=== PATIENT | male | born 1980 | race Caucasian/White ===

== ENCOUNTER 2024-09-25 09:18 | Emergency (ER) | payer BC, SELFPAY ==
[2024-09-25 09:37] VITALS: BP 130/70
[2024-09-25 10:13] VITALS: BMI 27.9
[2024-09-25 10:16] VITALS: BP 138/83
--- NOTE | 2024-09-25 10:25 | ED.GENMED ---
History of Present Illness
General
Chief Complaint: Chest Problem
Source: patient
Exam Limitations: none
Time Seen by Provider: 09/25/24 10:07
History of Present Illness
History of Present Illness:
44-year-old male otherwise healthy presents complaining of a pulsating or twitching feeling underneath his chest in the upper abdomen. This has been present over the past couple days. He describes this as not being painful. There is no associated
nausea diaphoresis or shortness of breath. No fevers. He was recently on vacation. He believes he is dehydrated he states he is under moderate amount of stress.
Past History
Past History
ED Past Medical History: None
ED Past Surgical History: None
Social History
Tobacco: Non-smoker
Alcohol: None
Phy Exam
Physical Exam
Physical Exam:
General: Well-appearing male in no acute respiratory distress
HEENT: Normocephalic atraumatic
Heart: Regular rate and rhythm
Lungs: Clear no wheeze
Abdomen is soft nontender nondistended
Musculoskeletal exam: There is a muscle twitch noted over the upper abdomen intermittently.
Course
Orders/Labs/Results
Orders:
Orders
09/25/24 09:41
Electrocardiogram (*1) Urgent
Reason for Study: Chest Pain
09/25/24 09:42
EKG- Treatment ONCE
09/25/24 10:24
Complete Blood Count/With Diff Urgent
Comprehensive Metabolic Panel Urgent
Lipase Urgent
Troponin I Urgent
0.9% Sodium Chloride 1000 ml [Nss] 1,000 ml IV BOLUS
Abnormal Lab Results
09/25/24
10:24
Abs Immat Gran (auto) 0.1 H 10^3/uL
(0-0.05)
Immature Gran % 0.7 H %
(0-0.5)
Glucose 112 H mg/dl
(70-99)
09/25/24 10:24
09/25/24 10:24
Vital Signs
Initial and Last Documented VS:
Initial Vital Signs
Temp Pulse Resp BP Pulse Ox
98.4 F 59 18 130/70 96
09/25/24 09:37 09/25/24 09:37 09/25/24 09:37 09/25/24 09:37 09/25/24 09:37
Last Documented Vital Signs
Temp Pulse Resp BP Pulse Ox
98.4 F 51 15 124/80 99
09/25/24 09:37 09/25/24 12:00 09/25/24 12:00 09/25/24 12:00 09/25/24 12:00
MDM/Problems Addressed
Differential Diagnosis Includes:
Patient has a pulsating sensation to the upper abdomen/lower chest. Question possible muscle spasm we will check electrolytes and cardiac function secondary to chest symptoms.
EKG shows sinus rhythm without ischemic changes
*Pulse Oximetry
SaO2: 98
Oxygen Mode of Delivery: Room air
Patient hypoxic: no
*Critical Care Note
Total Time (30-74mins, 75-104mins- exclusive of procedures): Not Applicable
Update Note
Update Note:
Labs reviewed all normal. No concerning findings on exam. Recommended hydration. Return precautions given.
ED Attending Note
-
Portions of this chart may have been created with voice recognition software.� Occasional wrong word or��sound alike� substitutions may have occurred due to the inherent limitations of voice recognition software.
Discharge Plan
Departure
Patient Disposition: Home (Routine Discharge)
Date of Disposition: 09/25/24
Time of Disposition: 13:10
Patient with high blood pressure during this ER visit?: No
Discharge Problem:
Muscle twitching
Instructions: Chest Pain PCP Follow Up
Referrals:
Marycarmen Stanton DO [Family Provider, Family Practice]
Activity Restrictions/Additional Instructions:
Stay hydrated. Turn if worse otherwise follow-up with your doctor
Interventions
Interventions:
*Risk Screen - Suicide Last Done: 09/25/24 09:37
*General Assessment Last Done: 09/25/24 09:37
*Neglect/Abuse Screening Last Done: 09/25/24 10:18
*ED- Fall Risk Assessment Last Done: 09/25/24 10:18
*ED COVID-19 Vaccine History Last Done: 09/25/24 10:18
ED- Cardiac Assessment Last Done: 09/25/24 10:18
ED- Pulmonary Assessment Last Done: 09/25/24 10:18
Discharge Date and Time
Print Language: [place]IZ[place]
[2024-09-25] MEDS: NSS 1000 IV (10:32)
[2024-09-25 10:40] LABS: Hematocrit 43.7 % (39.0-52.0); Hemoglobin 14.6 g/dL (13.0-18.0); Mean Corp Hgb Conc. 33.4 g/dL (33.0-37.0); Mean Corpuscular Volume 87.8 fL (80.0-94.0); Nucleated Red Blood Cells % 0 % (-); Platelet Count 284 10^3/uL (130-400); Red Cell Dist. Width 12.7 % (11.5-14.5)
[2024-09-25 10:58] LABS: ALT (SGPT) 31 U/L (0-50); AST (SGOT) 30 U/L (17-59); Albumin 4.6 g/dl (3.5-5.0); Alkaline Phosphatase 69 U/L (38-126); Blood Urea Nitrogen 17 mg/dl (9-20); Calcium 9.5 mg/dl (8.4-10.2); Carbon Dioxide 30 mmol/L (22-30); Chloride 106 mmol/L (98-107); Estimated Creatinine Clearance 101 ml/min; Glucose 112 mg/dl (70-99); Lipase 59 U/L (23-300); Potassium 4.7 mmol/L (3.5-5.1); Sodium 140 mmol/L (135-145); Total Protein 7.7 g/dl (6.3-8.2); eGFR > 60.00
[2024-09-25 11:00] VITALS: BP 129/78
[2024-09-25 11:10] LABS: Troponin I < 0.012 ng/ml
[2024-09-25 12:00] VITALS: BP 124/80
[2024-09-25 13:00] VITALS: BP 127/80
[2024-09-25 13:36] VITALS: BP 127/80
== END 2024-09-25 13:46 | disposition home or self-care (01) ==
LOC: EMR 09:18
PROVIDERS: EMERGENCY PHYSICIAN Emergency Medicine; FAMILY PHYSICIAN Family Medicine
DX: R25.3 Fasciculation (principal); R07.9 Chest pain, unspecified
CPT/HCPCS: 99284; 96360; 80053; 83690; 84484; 85025; 93005